=== PATIENT | female | born 1940 | race Caucasian/White ===

== ENCOUNTER 2016-10-11 11:20 | Inpatient (IN) | payer MEDICARE, OTHER ==
[~2016-10-11 11:20] MED LIST: FLUTICASONE PRO16 GM INH
[2016-10-11 16:10] LABS: HCT 36.5 % (37.0-47.0); MCH 30.4 pg (25.0-31.0); MCHC 32.9 g/dL (32.0-36.0); MCV 92.4 fL (78.0-100.0); MPV 10.3 fL (6.0-9.5); RBC 3.95 M/uL (4.20-5.40); RDW 14.9 % (11.5-14.0); WBC 6.9 K/uL (4.0-10.5)
[2016-10-11 16:21] LABS: INR 1.11 (0.9-1.2); PROTHROMBIN TIME 13.9 SECONDS (11.7-14.0); PTT 29.7 SECONDS (23.2-31.4)
[2016-10-11 16:27] LABS: ALBUMIN 4.4 g/dL (3.4-4.8); BILIRUBIN - TOTAL 0.4 mg/dL (0.1-1.0); CREATININE 0.5 mg/dL (0.5-1.0); GLOBULIN (CALCULATION) 2.5 g/dL (2.2-4.2); TOTAL PROTEIN 6.9 g/dL (6.4-8.3)
[2016-10-12 05:26] LABS: HCT 36.6 % (37.0-47.0); HGB 11.9 g/dl (12.5-16.0); MCH 30.4 pg (25.0-31.0); MCHC 32.5 g/dL (32.0-36.0); MCV 93.4 fL (78.0-100.0); MPV 10.4 fL (6.0-9.5); RBC 3.92 M/uL (4.20-5.40); RDW 14.9 % (11.5-14.0)
[2016-10-12 05:42] LABS: CREATININE 0.5 mg/dL (0.5-1.0); POTASSIUM 4.2 mmol/L (3.5-5.1)
[2016-10-13 05:23] LABS: HCT 37.5 % (37.0-47.0); HGB 12.2 g/dl (12.5-16.0); MCH 29.9 pg (25.0-31.0); MCHC 32.5 g/dL (32.0-36.0); MCV 91.9 fL (78.0-100.0); MPV 10.2 fL (6.0-9.5); RBC 4.08 M/uL (4.20-5.40); RDW 14.7 % (11.5-14.0); WBC 3.2 K/uL (4.0-10.5)
[2016-10-13 05:46] LABS: CREATININE 0.6 mg/dL (0.5-1.0); POTASSIUM 3.8 mmol/L (3.5-5.1)
[2016-10-14 04:42] LABS: HCT 37.9 % (37.0-47.0); HGB 12.2 g/dl (12.5-16.0); MCH 29.8 pg (25.0-31.0); MCHC 32.2 g/dL (32.0-36.0); MCV 92.4 fL (78.0-100.0); MPV 10.5 fL (6.0-9.5); RBC 4.1 M/uL (4.20-5.40); RDW 14.7 % (11.5-14.0); WBC 3.7 K/uL (4.0-10.5)
[2016-10-14 05:09] LABS: CREATININE 0.7 mg/dL (0.5-1.0); POTASSIUM 4.4 mmol/L (3.5-5.1)
[2016-10-16 05:32] LABS: HCT 36.1 % (37.0-47.0); HGB 12.1 g/dl (12.5-16.0); MCH 30.2 pg (25.0-31.0); MCHC 33.5 g/dL (32.0-36.0); MPV 10.4 fL (6.0-9.5); RBC 4.01 M/uL (4.20-5.40); RDW 14.4 % (11.5-14.0); WBC 3.4 K/uL (4.0-10.5)
[2016-10-16 05:50] LABS: CREATININE 0.7 mg/dL (0.5-1.0); POTASSIUM 3.9 mmol/L (3.5-5.1)
[2016-10-16] MEDS ORDERED: LEVAQUIN750 MG PO (12:10)
[2016-10-16] MEDS ORDERED: METRONIDAZOLE500 MG PO (12:10)
[2016-10-16] MEDS ORDERED: ATENOLOL-CHLOR1 EACH PO (12:12)
[2016-10-16] MEDS ORDERED: GLUCOVANCE 2.51 EACH PO (12:12)
[2016-10-16] MEDS ORDERED: SINGULAIR10 MG PO (12:13)
[2016-10-16] MEDS ORDERED: TRADJENTA5 MG PO (12:13)
[2016-10-16] MEDS ORDERED: CHLORTHALIDONE25 MG PO (12:13)
[2016-10-16] MEDS ORDERED: NEURONTIN300 MG PO (12:14)
[2016-10-16] MEDS ORDERED: LISINOPRIL-HCT1 EAC1 PO (12:14)
[2016-10-16] MEDS ORDERED: FLOVENT HF120 PUFFS/ INH (12:14)
[2016-10-16] MEDS ORDERED: ZOCOR20 MG PO (12:14)
[2016-10-16] MEDS ORDERED: DESYREL50 MG PO (12:14)
[2016-10-16] MEDS ORDERED: BENZONATATE100 MG PO (12:15)
[2016-10-16] MEDS ORDERED: HYDROCODONE-APA1 TAB PO (12:15)
[2016-10-16] MEDS ORDERED: PRILOSEC20 MG PO (12:16)
[2016-10-16] MEDS ORDERED: INVOKANA100 MG PO (12:16)
[2016-10-16] MEDS ORDERED: REQUIP0.5 MG PO (12:16)
[2016-10-16] MEDS ORDERED: TOUJEO SQ (12:17)
[2016-10-16] MEDS ORDERED: PROAIR HFA8.5 GM PO (12:17)
== END 2016-10-16 13:37 | disposition home or self-care (01) | DRG 378 ==
LOC: FMS 11:20 → FTCU 10-13 19:33 → FMS 10-14 13:00
PROVIDERS: Internal Medicine; ADMIT Internal Medicine Nephrology
DX: K92.2 Gastrointestinal hemorrhage, unspecified (principal); G45.9 Transient cerebral ischemic attack, unspecified; G20 Parkinson's disease; J44.9 Chronic obstructive pulmonary disease, unspecified; Z68.41 Body mass index [BMI] 40.0-44.9, adult; E11.9 Type 2 diabetes mellitus without complications; I10 Essential (primary) hypertension; I25.10 Atherosclerotic heart disease of native coronary artery without angina pectoris; G89.4 Chronic pain syndrome; E66.01 Morbid (severe) obesity due to excess calories; Z79.82 Long term (current) use of aspirin; Z90.710 Acquired absence of both cervix and uterus; Z83.3 Family history of diabetes mellitus; Z82.49 Family history of ischemic heart disease and other diseases of the circulatory system
CPT/HCPCS: 36415; 80048; 80053; 82962; 85610; 85730; 87045; 87046; 87324; 87449; 94010; 94640; C9113; J1170; J1815; J1956; J2270; J2405